=== PATIENT | female | born 1975 | race Caucasian/White ===

== ENCOUNTER 2018-11-20 20:14 | Emergency (ER) | payer MEDICAID ==
[~2018-11-20] VITALS: Ht 162.6 cm; Wt 56.2 kg
[~2018-11-20 20:14] MED LIST: ADVAIR 500/50 D1 AER IH; BAY PO; CARDIZEM PO; CEL20 PO; ED BACLOFEN10 MG PO; FAMILY PHARMAC0.4 MG PO; IRON324 M1 PO; KEPPRA XR500 MG PO; LOP50 PO; LORAZEPAM1 PO; MONTELUKAST SOD10 MG PO; NEURONTIN300 PO; PRI20 PO; SEROQUEL300 MG PO; TRAMADOL HCL50 MG PO; TRE400 PO; VASOTEC PO; ZOC20 PO; ZOLOFT PO
[2018-11-20 20:18] VITALS: Ht 162.6 cm; Wt 56.2 kg
[2018-11-20 22:28] VITALS: BP 106/59
== END 2018-11-20 22:28 | disposition home or self-care (01) ==
LOC: ED 20:14
DX: S09.90XA Unspecified injury of head, initial encounter (principal); F41.9 Anxiety disorder, unspecified; Z88.6 Allergy status to analgesic agent; Z88.5 Allergy status to narcotic agent; W22.8XXA Striking against or struck by other objects, initial encounter; Y93.89 Activity, other specified; Y92.89 Other specified places as the place of occurrence of the external cause; Y99.8 Other external cause status

== ENCOUNTER 2019-03-22 10:39 | Emergency (ER) | payer MEDICAID ==
[~2019-03-22] VITALS: Ht 162.6 cm; Wt 53.1 kg
[2019-03-22 11:01] VITALS: BP 107/64; Ht 162.6 cm; Wt 53.1 kg
== END 2019-03-22 11:47 | disposition home or self-care (01) ==
LOC: ED 10:39
DX: T63.481A Toxic effect of venom of other arthropod, accidental (unintentional), initial encounter (principal); L29.9 Pruritus, unspecified; F41.9 Anxiety disorder, unspecified; Z88.8 Allergy status to other drugs, medicaments and biological substances; Y92.89 Other specified places as the place of occurrence of the external cause